=== PATIENT | female | born 2005 | race American Indian/Alaskan Native ===

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

== ENCOUNTER 2025-01-08 11:34 | Emergency (ER) | payer MEDICAID ==
[2025-01-08 12:29] VITALS: BP 124/87; PULSE 106
== END 2025-01-08 12:36 | disposition home or self-care (01) ==
LOC: DL.ED 11:34
DX: J06.9 Acute upper respiratory infection, unspecified (principal); B97.89 Other viral agents as the cause of diseases classified elsewhere; Z79.899 Other long term (current) drug therapy
CPT/HCPCS: 87428-QW; 99282; 99284

== ENCOUNTER 2025-02-08 00:10 | Inpatient (IN) | payer MEDICAID ==
[~2025-02-08 00:10] MED LIST changes: +Acetaminophen 325 MG Tab PO PRN; +Carboprost Tromethamine 250 MCG/1 ML Amp IM PRN; -MVI, Adult with Vitamin K 10 ML, Thiamine 100 MG, Folic Acid 1 MG in Lactated Ringers 1... IV ONE; +Methylergonovine 0.2 MG/1 ML Amp IM PRN; +Misoprostol 50 MCG (1/2 of 100 MCG) Tab PO SCH; +Sodium Chloride 0.9% 10 ML Syringe FLUSH PRN; +Tranexamic Acid 1,000 MG in Sodium Chloride 0.9% 100 ML IV PRN; +fentaNYL 100 MCG/2 ML SDV IVPUSH PRN
[2025-02-08 00:40] LABS: HEMATOCRIT 32.6 % (37.0-47.0); HEMOGLOBIN 10.3 g/dL (12.0-16.0); MEAN CORPUSCULAR HEMOGLOBIN 27.2 pg (27.0-34.0); MEAN CORPUSCULAR HGB CONC 31.6 g/dL (33.0-35.0); RED BLOOD CELL COUNT 3.79 10^6/uL (4.2-5.4); WHITE BLOOD CELL COUNT,WBC 8.8 10^3/uL (5.0-10.0)
[2025-02-08] MEDS: Misoprostol 50 MCG (1/2 of 100 MCG) Tab PO PRN (00:59)
[2025-02-08] MEDS: Nalbuphine HCl 10 MG/ 1ML Amp IM PRN (07:28)
[2025-02-08] MEDS: Ondansetron 4 MG/2 ML SDV IVPUSH PRN (07:30)
[2025-02-08] MEDS: Lactated Ringers 1,000 ML IV SCH (07:49)
[2025-02-08] MEDS ORDERED: ePHEDrine 50 MG/ML SDV IVPUSH PRN (09:39)
[2025-02-08] MEDS ORDERED: Phenylephrine HCl In 0.9% NaCl 1 MG/10 ML Syringe IVPUSH PRN (09:39)
[2025-02-08] MEDS ORDERED: Ropivacaine 200 MG in Premix Bag 1 BAG EPIDUR SCH (09:45)
[2025-02-08] MEDS: Lactated Ringers 1,000 ML IV ONE (13:58)
[2025-02-08] MEDS: Oxytocin/Normal Saline 30 UNIT/500 ML BAG IV SCH (13:58)
[2025-02-08] MEDS ORDERED: Simethicone 80 MG Tab.Chew PO PRN (14:55)
[2025-02-08] MEDS ORDERED: Methylergonovine 0.2 MG Tab PO PRN (14:55)
[2025-02-08] MEDS ORDERED: Misoprostol 100 MCG Tab RECTAL PRN (14:55)
[2025-02-08] MEDS ORDERED: Oxytocin 10 Units/1 ML SDV IM PRN (14:55)
[2025-02-08] MEDS: Lidocaine 1% 30 ML SDV INJECT ONE (15:25)
[2025-02-08] MEDS: Benzocaine/Menthol 20%-0.5% Spray 78 GM Cannister TOP PRN (15:28)
[2025-02-08] MEDS: Witch Hazel Medicated Pads 100/Jar TOP PRN (15:28)
[2025-02-08] MEDS: Ibuprofen 800 MG Tab PO SCH (15:34)
[2025-02-08] MEDS: Promethazine 25 MG/ML SDV IM ONE (15:34)
[2025-02-08] MEDS: Acetaminophen 325 MG Tab PO PRN (20:22)
[2025-02-08] MEDS: Docusate Sodium 100 MG Cap PO PRN (20:24)
[2025-02-09] MEDS: Prenatal Multivitamin with Calcium/Folic Acid/Iron Tab PO SCH (09:27)
[2025-02-09] MEDS: Acetaminophen 325 MG Tab PO PRN (18:46)
[2025-02-10 09:02] VITALS: BP 131/83; PULSE 112
[2025-02-10] MEDS: Ondansetron 4 MG Tab.DIS PO ONE (09:14)
== END 2025-02-10 13:18 | disposition home or self-care (01) | DRG 807 ==
LOC: DL.OB 00:10 → OBSVTOIN 14:30
PROVIDERS: ADMIT Family Medicine; ATTEND Family Medicine
PROC: 3E0R3BZ Introduction of Anesthetic Agent into Spinal Canal, Percutaneous Approach (ICD-10-PCS; principal; 2025-02-08)
PROC: 10E0XZZ Delivery of Products of Conception, External Approach (ICD-10-PCS; principal; 2025-02-08)
PROC: 3E0DXGC Introduction of Other Therapeutic Substance into Mouth and Pharynx, External Approach (ICD-10-PCS; principal; 2025-02-08)
DX: O26.643 Intrahepatic cholestasis of pregnancy, third trimester (principal); Z37.0 Single live birth; O99.344 Other mental disorders complicating childbirth; O70.1 Second degree perineal laceration during delivery; F12.90 Cannabis use, unspecified, uncomplicated; R76.8 Other specified abnormal immunological findings in serum; Z79.899 Other long term (current) drug therapy; Z98.890 Other specified postprocedural states; Z72.0 Tobacco use; Z3A.38 38 weeks gestation of pregnancy
CPT/HCPCS: 36415; 51702; 59409; 85027; A9270-GY; J2300; J2405; J2550; J2590; J7120